=== PATIENT | female | born 1965 | race American Indian/Alaskan Native ===

== ENCOUNTER 2021-06-08 13:25 | Emergency (ER) | payer SELFPAY ==
[2021-06-08] MEDS ORDERED: cloNIDine 0.2 MG TAB PO ONE (14:33)
--- NOTE | 2021-06-08 15:17 | XRay Report ---
RIGHT FOOT 3 VIEW(S) INDICATION / CLINICAL INFORMATION: right foot pain and swelling COMPARISON: None available. FINDINGS: BONES / JOINT(S): No acute fracture or subluxation. No significant arthritis. SOFT TISSUES: No significant abnormality. ADDITIONAL FINDINGS: None. Signer Name: Rene Benites DO Signed: 06/08/2021 3:12 PM Workstation Name: [id number]
--- NOTE | 2021-06-08 15:28 | Emergency Department Report ---
ED Extremity Problem HPI - General Chief complaint: Extremity Problem,Nontraumatic Stated complaint: MY FEET IS HURTING Time Seen by Provider: 06/08/21 14:10 Source: patient Mode of arrival: Ambulatory Limitations: No Limitations - History of Present Illness Initial comments: Patient is a 56-year-old female presents emergency room complaints of right foot pain and swelling that began a couple days ago. She reports that this occurs intermittently every few months. She denies any fall or injury. She denies any fever, chills, numbness, weakness, rashes. She states her pain is worse with ambulation. Past medical history of hypertension, she states that she takes lisinopril and amlodipine, she states that she has not taken her medication in 2 days but reports that she does have it at home. No allergies to medications. - Related Data Previous Rx's Medication Instructions Recorded Last Taken Type Colchicine 0.6 mg PO DAILY 1 Days #3 tablet 06/08/21 Unknown Rx Indomethacin [Indocin] 25 mg PO Q8H #21 capsule 06/08/21 Unknown Rx predniSONE [Deltasone] 40 mg PO QDAY 5 Days #10 tab 06/08/21 Unknown Rx Allergies Allergy/AdvReac Type Severity Reaction Status Date / Time No Known Allergies Allergy Verified 06/08/21 13:32 ED Review of Systems ROS: Stated complaint: MY FEET IS HURTING Other details as noted in HPI Comment: All other systems reviewed and negative ED Past Medical Hx - Medications Home Medications: Home Medications Medication Instructions Recorded Confirmed Last Taken Type Colchicine 0.6 mg PO DAILY 1 Days #3 tablet 06/08/21 Unknown Rx Indomethacin [Indocin] 25 mg PO Q8H #21 capsule 06/08/21 Unknown Rx predniSONE [Deltasone] 40 mg PO QDAY 5 Days #10 tab 06/08/21 Unknown Rx ED Physical Exam - General Limitations: No Limitations General appearance: alert, in no apparent distress - Head Head exam: Present: atraumatic, normocephalic - Eye Eye exam: Present: normal appearance - ENT ENT exam: Present: mucous membranes moist - Extremities Exam Extremities exam: Present: other (ttp and mild edema to the right dorsal foot, mild increased warmth, no erythema, no rashes, skin is intact, FROM, neurovascularly intact) - Neurological Exam Neurological exam: Present: alert, oriented X3 - Psychiatric Psychiatric exam: Present: normal affect, normal mood - Skin Skin exam: Present: warm, dry, intact ED Course Vital Signs 06/08/21 06/08/21 06/08/21 13:32 14:51 15:52 Temperature 98.2 F Pulse Rate 100 H 100 H 94 H Respiratory 18 Rate Blood Pressure 224/140 Blood Pressure 225/145 198/107 [Right] O2 Sat by Pulse 100 99 Oximetry ED Medical Decision Making - Lab Data Vital Signs 06/08/21 06/08/21 06/08/21 13:32 14:51 15:52 Temperature 98.2 F Pulse Rate 100 H 100 H 94 H Respiratory 18 Rate Blood Pressure 224/140 Blood Pressure 225/145 198/107 [Right] O2 Sat by Pulse 100 99 Oximetry - Radiology Data Radiology results: report reviewed Ordering Physician: DOUG KOVACS Date of Service: 06/08/21 Procedure(s): XR foot 3+V RT Accession Number(s): [id number] cc: DOUG KOVACS Fluoro Time In Minutes: RIGHT FOOT 3 VIEW(S) INDICATION / CLINICAL INFORMATION: right foot pain and swelling COMPARISON: None available. FINDINGS: BONES / JOINT(S): No acute fracture or subluxation. No significant arthritis. SOFT TISSUES: No significant abnormality. ADDITIONAL FINDINGS: None. Signer Name: Rene Benites DO Signed: 06/08/2021 3:12 PM Workstation Name: [id number] Transcribed By: CHRISTINA Dictated By: RENE BENITES DO Electronically Authenticated By: RENE BENITES DO Signed Date/Time: 06/08/211511 DD/ 11 TD/TT: - Medical Decision Making Patient is a 56-year-old female presents emergency room complaints of right foot pain and swelling that began a couple days ago. She reports that this occurs intermittently every few months. She denies any fall or injury. She denies any fever, chills, numbness, weakness, rashes. She states her pain is worse with ambulation. Past medical history of hypertension, she states that she takes lisinopril and amlodipine, she states that she has not taken her medication in 2 days but reports that she does have it at home. No allergies to medications. Initial vitals with significantly elevated blood pressure, patient has not taken her blood pressure medication in 2 days but reports she does have it at home, she does not have any symptoms related to her blood pressure, patient given clonidine with some improvement of her blood pressure, discussed the importance of taking her medication as prescribed, lifestyle modifications, primary care follow-up. On exam: ttp and mild edema to the right dorsal foot, mild increased warmth, no erythema, no rashes, skin is intact, FROM, neurovascularly intact. x-ray right foot BONES / JOINT(S): No acute fracture or subluxation. No significant arthritis. SOFT TISSUES: No significant abnormality. ADDITIONAL FINDINGS: None. Symptoms could be related to gout versus another arthropathy. No signs of infection or septic joint. Patient given prescription for medication. Advised patient Please take medication as prescribed. Follow-up with your primary care doctor. Follow-up with orthopedic doctor. Please take your blood pressure medication as prescribed by your doctor. Eat a low-sodium diet. Please follow the diet for gout. Increase your water intake. Incorporate 30 to 60 minutes of daily exercise. Return to emergency room for any new or worsening symptoms. Critical care attestation.: If time is entered above; I have spent that time in minutes in the direct care of this critically ill patient, excluding procedure time. ED Disposition Clinical Impression: Foot swelling, Elevated blood pressure reading Foot pain Qualifiers: Laterality: right Qualified Code(s): M79.671 - Pain in right foot Disposition: 01 HOME / SELF CARE / HOMELESS Is pt being admited?: No Does the pt Need Aspirin: No Condition: Stable Instructions: Low-Purine Eating Plan, Low-Sodium Eating Plan, Managing Your Hypertension Additional Instructions: Please take medication as prescribed. Follow-up with your primary care doctor. Follow-up with orthopedic doctor. Please take your blood pressure medication as prescribed by your doctor. Eat a low-sodium diet. Please follow the diet for gout. Increase your water intake. Incorporate 30 to 60 minutes of daily exercise. Return to emergency room for any new or worsening symptoms. Prescriptions: Colchicine 0.6 mg PO DAILY 1 Days #3 tablet predniSONE [Deltasone] 40 mg PO QDAY 5 Days #10 tab Indomethacin [Indocin] 25 mg PO Q8H #21 capsule Referrals: PRIMARY MD HOLLI [Primary Care Provider] - 3-5 Days MONICA BLANKENSHIP MD [Staff Physician] - 3-5 Days Forms: Work/School Release Form(ED) Time of Disposition: 15:27 Print Language: KOREAN
[2021-06-08 15:53] VITALS: BP 198/107
== END 2021-06-08 15:53 | disposition home or self-care (01) ==
LOC: ED 13:25
DX: M79.671 Pain in right foot (principal); R03.0 Elevated blood-pressure reading, without diagnosis of hypertension; Z79.899 Other long term (current) drug therapy
CPT/HCPCS: 99283